=== PATIENT | male | born 1965 | race Caucasian/White ===

== ENCOUNTER 2020-09-07 19:39 | Inpatient (IN) | payer OTHER ==
[~2020-09-07] VITALS: Ht 180.3 cm; Wt 106.7 kg
[~2020-09-07 19:39] MED LIST: ALDACTONE25 MG PO; ALLOPURINOL300 MG PO; AUGMENTIN 875-1 EACH PO; COZAAR100 MG PO; FUROSEMIDE 40MG40 MG PO; GABAPENTIN 100100 MG PO; HCTZ25 MG PO; KEFLEX500 MG PO; LOPRESSOR25 MG PO; MUCINEX D ER 61 EACH PO; NORCO 5-325 TA1 EACH PO; POTASSIUM CHLO20 ME2 PO; PRILOSEC20 MG PO; PRINIVIL20 MG PO; VITAMIN B-121000 MC1 PO
[2020-09-07 20:22] LABS: BASOPHIL 0.8 % (0-2); EOSINOPHIL 2.7 % (0-5); HCT 39.7 % (42.0-52.0); HGB 13.1 g/dl (13.2-18.0); LYMPHOCYTE 22.4 % (15-48); MCH 31.4 pg (25.0-31.0); MCV 95.2 fL (78.0-100.0); MONOCYTE 8.9 % (0-12); MPV 8.9 fL (6.0-9.5); NEUTROPHIL 64.7 % (41-80); NRBC 0; PLT 536 K/uL (150-400); RBC 4.17 M/uL (4.70-6.00); RDW 15.1 % (11.5-14.0); WBC 9.8 K/uL (4.0-10.5)
[2020-09-07 20:24] LABS: LACTIC ACID 4.8 mmol/L (0.4-1.9)
[2020-09-07 20:59] LABS: INFLUENZA A NAA NEGATIVE (NEGATIVE)
[2020-09-07 22:15] LABS: PRO-BNP 60 pg/mL (<125)
[2020-09-07 22:16] LABS: ALBUMIN 3.4 g/dL (3.4-5.0); ALKALINE PHOSHATASE 113 U/L (46-116); ALT 47 U/L (16-63); AST 67 U/L (15-37); BILIRUBIN - TOTAL 0.4 mg/dL (0.2-1.0); BUN 15 mg/dL (7-18); C-REACTIVE PROTEIN < 0.20 mg/dL (<=0.90); CHLORIDE 103 mmol/L (98-107); CO2 (BICARBONATE) 26 mmol/L (21-32); CREATININE 0.85 mg/dL (0.67-1.17); GLOBULIN (CALCULATION) 4.4 g/dL; GLUCOSE 142 mg/dL (74-106); LIPASE 152 U/L (73-393); POTASSIUM 3.4 mmol/L (3.5-5.1); TOTAL PROTEIN 7.8 g/dL (6.4-8.2)
[2020-09-07 22:19] LABS: CORONAVIRUS 2019 SARS-COV-2 POSITIVE (NEGATIVE)
[2020-09-08 00:28] LABS: BILIRUBIN NEGATIVE (NEGATIVE); BLOOD NEGATIVE Ery/uL (NEGATIVE); CLARITY CLEAR (CLEAR); COLOR YELLOW (YELLOW); GLUCOSE (U) NORMAL (NORMAL); LEUKOCYTES NEGATIVE Leu/uL (NEGATIVE); NITRITE NEGATIVE (NEGATIVE); PROTEIN 1+ mg/dL (NEGATIVE); UROBILINOGEN 0.2 mg/dL (0.2-1.0)
[2020-09-08 00:41] LABS: RENAL EPITHELIAL CELLS RARE
[2020-09-08 01:37] LABS: MAGNESIUM 2.2 mg/dL (1.8-2.4); PHOSPHORUS 3.2 mg/dL (2.6-4.7)
[2020-09-08 07:48] LABS: BASOPHIL 0.5 % (0-2); EOSINOPHIL 0 % (0-5); HCT 38.4 % (42.0-52.0); HGB 12.6 g/dl (13.2-18.0); LYMPHOCYTE 10.5 % (15-48); MCH 32.1 pg (25.0-31.0); MCHC 32.8 g/dL (32.0-36.0); MCV 97.7 fL (78.0-100.0); MONOCYTE 1.3 % (0-12); MPV 8.9 fL (6.0-9.5); NEUTROPHIL 87.2 % (41-80); NRBC 0; PLT 464 K/uL (150-400); RBC 3.93 M/uL (4.70-6.00)
[2020-09-08 07:59] LABS: WBC 3.9 K/uL (4.0-10.5)
--- NOTE | 2020-09-08 08:00 | NUR ---
UPON PT ASSESSMENT THIS AM, RN NOTICED PT DEMONSTRATING SEVERE SHAKING WITH BUE WHEN TAKING MEDICATIONS. PT ETOH LEVEL WAS 362 UPON ADMISSION. PT DENIED THIS HIS BASELINE AND STATED IT WAS "PROBABLY BECAUSE OF ALCOHOL." PT HAS PHENOBARB 2ML PRN ON HIS EMAR. MD MARTIN WAS NOTIFIED OF TREMORS AND ALSO ORDERED LIBRIUM AT 0800.
[2020-09-08 08:39] LABS: BILIRUBIN - TOTAL 0.4 mg/dL (0.2-1.0); CREATININE 0.75 mg/dL (0.67-1.17); GLOBULIN (CALCULATION) 4.3 g/dL; POTASSIUM 3.7 mmol/L (3.5-5.1); TOTAL PROTEIN 7.3 g/dL (6.4-8.2)
[2020-09-09 06:33] LABS: BASOPHIL 0.1 % (0-2); EOSINOPHIL 0.1 % (0-5); HCT 35.1 % (42.0-52.0); HGB 11.7 g/dl (13.2-18.0); LYMPHOCYTE 3.8 % (15-48); MCH 32.1 pg (25.0-31.0); MCHC 33.3 g/dL (32.0-36.0); MCV 96.4 fL (78.0-100.0); MONOCYTE 6.2 % (0-12); MPV 9.2 fL (6.0-9.5); NEUTROPHIL 89.3 % (41-80); NRBC 0.2; PLT 429 K/uL (150-400); RBC 3.64 M/uL (4.70-6.00); RDW 14.8 % (11.5-14.0)
[2020-09-09 07:20] LABS: ALBUMIN 2.8 g/dL (3.4-5.0); BILIRUBIN - TOTAL 0.5 mg/dL (0.2-1.0); CREATININE 0.75 mg/dL (0.67-1.17); GLOBULIN (CALCULATION) 3.1 g/dL; POTASSIUM 3.1 mmol/L (3.5-5.1); TOTAL PROTEIN 5.9 g/dL (6.4-8.2)
[2020-09-10 06:25] LABS: BASOPHIL 0.1 % (0-2); EOSINOPHIL 0 % (0-5); HCT 34.8 % (42.0-52.0); HGB 11.6 g/dl (13.2-18.0); LYMPHOCYTE 8.2 % (15-48); MCHC 33.3 g/dL (32.0-36.0); MCV 96.1 fL (78.0-100.0); MPV 9.5 fL (6.0-9.5); NEUTROPHIL 84.4 % (41-80); NRBC 0; PLT 405 K/uL (150-400); RBC 3.62 M/uL (4.70-6.00); RDW 14.9 % (11.5-14.0)
[2020-09-10 06:56] LABS: ALBUMIN 2.7 g/dL (3.4-5.0); BILIRUBIN - TOTAL 0.4 mg/dL (0.2-1.0); CREATININE 0.71 mg/dL (0.67-1.17); GLOBULIN (CALCULATION) 3.6 g/dL; POTASSIUM 2.8 mmol/L (3.5-5.1); TOTAL PROTEIN 6.3 g/dL (6.4-8.2)
[2020-09-10 06:57] LABS: MAGNESIUM 1.7 mg/dL (1.8-2.4)
--- NOTE | 2020-09-10 14:37 | NUR ---
PT. IS HAVE WITHDRAWAL. CANNOT INTERVIEW AT THIS TIME. PT. IS ALSO COVID POS. [facility]
[2020-09-11 04:14] LABS: BASOPHIL 0.1 % (0-2); EOSINOPHIL 0.2 % (0-5); HGB 11.9 g/dl (13.2-18.0); LYMPHOCYTE 10.7 % (15-48); MCH 32.5 pg (25.0-31.0); MCV 95.6 fL (78.0-100.0); MPV 9.1 fL (6.0-9.5); NEUTROPHIL 80.6 % (41-80); NRBC 0; PLT 314 K/uL (150-400); RBC 3.66 M/uL (4.70-6.00); RDW 14.8 % (11.5-14.0); WBC 11.7 K/uL (4.0-10.5)
[2020-09-11 04:39] LABS: BUN/CREAT RATIO (CALC) 22.2 RATIO; CREATININE 0.99 mg/dL (0.67-1.17); MAGNESIUM 1.9 mg/dL (1.8-2.4); PHOSPHORUS 3.9 mg/dL (2.6-4.7); POTASSIUM 3.4 mmol/L (3.5-5.1)
[2020-09-12 04:37] LABS: BASOPHIL 0.3 % (0-2); EOSINOPHIL 1.2 % (0-5); HCT 38.3 % (42.0-52.0); HGB 12.8 g/dl (13.2-18.0); MCH 32.5 pg (25.0-31.0); MCHC 33.4 g/dL (32.0-36.0); MCV 97.2 fL (78.0-100.0); MONOCYTE 6.6 % (0-12); MPV 9.2 fL (6.0-9.5); NEUTROPHIL 75.6 % (41-80); NRBC 0; PLT 344 K/uL (150-400); RBC 3.94 M/uL (4.70-6.00); RDW 14.9 % (11.5-14.0)
[2020-09-12 05:08] LABS: BUN/CREAT RATIO (CALC) 20.8 RATIO; CREATININE 1.06 mg/dL (0.67-1.17); POTASSIUM 3.4 mmol/L (3.5-5.1)
[2020-09-12] MEDS ORDERED: PROVENTIL HFA6.7 GM INH ×2 (09:35→11:18)
[2020-09-12] MEDS ORDERED: ATROVENT HFA12.9 GM INH ×2 (09:35→11:18)
[2020-09-12] MEDS ORDERED: MAG-OXIDE 400M400 MG PO ×2 (09:36→11:18)
[2020-09-12] MEDS ORDERED: DULERA 200 MCG8.8 GM INH ×2 (09:36→11:18)
[2020-09-12] MEDS ORDERED: AUGMENTIN 875-1 EACH PO ×2 (09:56→11:18)
== END 2020-09-12 11:45 | disposition home or self-care (01) | DRG 871 ==
LOC: FER 19:39 → FTCU 23:53
PROVIDERS: Emergency Medicine Emergency Medical Services; Nurse Practitioner; ADMIT Internal Medicine
PROC: XW033E5 Introduction of Remdesivir Anti-infective into Peripheral Vein, Percutaneous Approach, New Technology Group 5 (ICD-10-PCS; principal; 2020-09-08)
PROC: 8E0ZXY6 Isolation (ICD-10-PCS; 2020-09-08)
DX: A41.89 Other specified sepsis (principal); U07.1 COVID-19; J96.01 Acute respiratory failure with hypoxia; J96.02 Acute respiratory failure with hypercapnia; J12.82 Pneumonia due to coronavirus disease 2019; F10.139 Alcohol abuse with withdrawal, unspecified; E83.42 Hypomagnesemia; I11.0 Hypertensive heart disease with heart failure; I50.9 Heart failure, unspecified; M10.9 Gout, unspecified; K21.9 Gastro-esophageal reflux disease without esophagitis; G47.30 Sleep apnea, unspecified; R07.89 Other chest pain; Z59.0 Homelessness; Z98.890 Other specified postprocedural states; Z87.01 Personal history of pneumonia (recurrent); Z87.891 Personal history of nicotine dependence
CPT/HCPCS: 36415; 36600; 71045; 71275; 80048; 80053; 81001; 82140; 82803; 83605; 83690; 83735; 83880; 84100; 84145; 84484; 85025; 85379; 86140; 87040; 87088; 93005; 94010; 94640; 94664; 94667; 94668; 94762; C9399; G0480; J2270; J2405; J2543; J2560; J2930; J3360; J3411; J3475; J7030; J7050; J8540; Q9967; U0002

== ENCOUNTER 2020-09-12 23:16 | Day surgery (SDCO) | payer OTHER ==
[~2020-09-12] VITALS: Ht 180.3 cm; Wt 156.0 kg
[~2020-09-12 23:16] MED LIST changes: +ATROVENT HFA12.9 GM INH; +DULERA 200 MCG8.8 GM INH; +MAG-OXIDE 400M400 MG PO; +PROVENTIL HFA6.7 GM INH
[2020-09-13 00:09] LABS: BASOPHIL 0.3 % (0-2); HGB 12.5 g/dl (13.2-18.0); LYMPHOCYTE 10.4 % (15-48); MCH 32.1 pg (25.0-31.0); MCHC 33.8 g/dL (32.0-36.0); MCV 95.1 fL (78.0-100.0); MONOCYTE 5.8 % (0-12); MPV 9.7 fL (6.0-9.5); NEUTROPHIL 81.2 % (41-80); NRBC 0; PLT 361 K/uL (150-400); RBC 3.89 M/uL (4.70-6.00)
[2020-09-13 00:26] LABS: ALBUMIN 2.9 g/dL (3.4-5.0); BILIRUBIN - TOTAL 0.4 mg/dL (0.2-1.0); BUN/CREAT RATIO (CALC) 15.2 RATIO; CREATININE 1.78 mg/dL (0.67-1.17); GLOBULIN (CALCULATION) 3.9 g/dL; POTASSIUM 3.3 mmol/L (3.5-5.1); TOTAL PROTEIN 6.8 g/dL (6.4-8.2)
[2020-09-13 00:29] LABS: PRO-BNP 79 pg/mL (<125)
[2020-09-13 05:55] LABS: BILIRUBIN NEGATIVE (NEGATIVE); BLOOD NEGATIVE Ery/uL (NEGATIVE); CLARITY CLEAR (CLEAR); COLOR YELLOW (YELLOW); GLUCOSE (U) NORMAL (NORMAL); LEUKOCYTES NEGATIVE Leu/uL (NEGATIVE); NITRITE NEGATIVE (NEGATIVE); PROTEIN NEGATIVE (NEGATIVE); UROBILINOGEN 0.2 mg/dL (0.2-1.0)
[2020-09-13 06:01] LABS: AMPHETAMINES NEGATIVE (NEGATIVE); BARBITURATES POSITIVE (NEGATIVE); ECSTASY (MDMA) NEGATIVE (NEGATIVE); MARIJUANA (THC) NEGATIVE (NEGATIVE); METHADONE NEGATIVE (NEGATIVE); OPIATES POSITIVE (NEGATIVE); OXYCODONE NEGATIVE (NEGATIVE)
[2020-09-13 09:53] LABS: BASOPHIL 0.4 % (0-2); EOSINOPHIL 1.2 % (0-5); HCT 37.5 % (42.0-52.0); HGB 12.5 g/dl (13.2-18.0); LYMPHOCYTE 13.9 % (15-48); MCH 32.7 pg (25.0-31.0); MCHC 33.3 g/dL (32.0-36.0); MCV 98.2 fL (78.0-100.0); MONOCYTE 8.5 % (0-12); MPV 9.7 fL (6.0-9.5); NEUTROPHIL 74.4 % (41-80); NRBC 0; PLT 280 K/uL (150-400); RBC 3.82 M/uL (4.70-6.00); RDW 15.3 % (11.5-14.0); WBC 16.1 K/uL (4.0-10.5)
[2020-09-13 10:19] LABS: BUN 28 mg/dL (7-18); BUN/CREAT RATIO (CALC) 24.1 RATIO; CHLORIDE 101 mmol/L (98-107); CO2 (BICARBONATE) 28 mmol/L (21-32); CREATININE 1.16 mg/dL (0.67-1.17); GLUCOSE 92 mg/dL (74-106); MAGNESIUM 2.1 mg/dL (1.8-2.4); POTASSIUM 3.1 mmol/L (3.5-5.1)
[2020-09-14 06:31] LABS: BASOPHIL 0.4 % (0-2); EOSINOPHIL 2.4 % (0-5); HCT 35.4 % (42.0-52.0); HGB 11.7 g/dl (13.2-18.0); LYMPHOCYTE 13.7 % (15-48); MCH 32.3 pg (25.0-31.0); MCHC 33.1 g/dL (32.0-36.0); MCV 97.8 fL (78.0-100.0); MONOCYTE 9.4 % (0-12); MPV 9.6 fL (6.0-9.5); NEUTROPHIL 72.6 % (41-80); NRBC 0; PLT 251 K/uL (150-400); RBC 3.62 M/uL (4.70-6.00); RDW 15.1 % (11.5-14.0); WBC 12.7 K/uL (4.0-10.5)
[2020-09-14 07:01] LABS: BUN/CREAT RATIO (CALC) 23.9 RATIO; CREATININE 0.92 mg/dL (0.67-1.17); POTASSIUM 3.6 mmol/L (3.5-5.1)
--- NOTE | 2020-09-14 12:54 | NUR ---
1200 SET UP THE IPAD FOR A ZOOM MEETING WITH THE PATIENT AND [facility].
--- NOTE | 2020-09-14 16:04 | NUR ---
1430 WAS NOTIFIED THAT [facility] HAS ACCEPTED HIM FOR INPATIENT. 1435 WAS NOTIFED OF THE BED AT OUR AND BED NUMBER. 1525 REPORT WAS CALLED TO JR SANTOS AT [facility]. AWAITING FOR EMS FOR TRANSPORT.
== END 2020-09-14 17:20 ==
LOC: FER 23:16 → FMS 09-13 05:24
PROVIDERS: Allergy & Immunology; Emergency Medicine Emergency Medical Services; Internal Medicine; ADMIT Internal Medicine
DX: U07.1 COVID-19 (principal); J12.82 Pneumonia due to coronavirus disease 2019; D72.829 Elevated white blood cell count, unspecified; N17.9 Acute kidney failure, unspecified; F10.129 Alcohol abuse with intoxication, unspecified; E66.01 Morbid (severe) obesity due to excess calories; I11.0 Hypertensive heart disease with heart failure; I50.9 Heart failure, unspecified; F32.9 Major depressive disorder, single episode, unspecified; M10.9 Gout, unspecified; K21.9 Gastro-esophageal reflux disease without esophagitis; G47.30 Sleep apnea, unspecified; Z87.891 Personal history of nicotine dependence; R94.31 Abnormal electrocardiogram [ECG] [EKG]
CPT/HCPCS: 36415; 36600; 71045; 71250; 80048; 80053; 80305; 81003; 82803; 83605; 83735; 83880; 84145; 84484; 85025; 85379; 87040; 93005; 94640; 94664; 94760; G0378; G0480; J0692; J1650; J3480; J7040; U0002

== ENCOUNTER 2020-09-29 10:36 | Emergency (ER) | payer OTHER | END 2020-09-29 15:19 | disposition home or self-care (01) | LOC: FER 10:36 | DX: S80.02XA Contusion of left knee, initial encounter (principal); S80.01XA Contusion of right knee, initial encounter; I10 Essential (primary) hypertension; J44.9 Chronic obstructive pulmonary disease, unspecified; I51.9 Heart disease, unspecified; W19.XXXA Unspecified fall, initial encounter; Y92.009 Unspecified place in unspecified non-institutional (private) residence as the place of occurrence of the external cause | CPT/HCPCS: 73564 ==

== ENCOUNTER 2020-10-29 12:04 | Emergency (ER) | payer OTHER ==
[2020-10-29 12:31] LABS: EOSINOPHIL 3.8 % (0-5); HCT 38.7 % (42.0-52.0); HGB 12.7 g/dl (13.2-18.0); LYMPHOCYTE 22.7 % (15-48); MCHC 32.8 g/dL (32.0-36.0); MCV 97.5 fL (78.0-100.0); MONOCYTE 7.1 % (0-12); MPV 9.2 fL (6.0-9.5); NRBC 0; PLT 297 K/uL (150-400); RBC 3.97 M/uL (4.70-6.00); RDW 13.5 % (11.5-14.0); WBC 5.1 K/uL (4.0-10.5)
[2020-10-29 13:08] LABS: INR 1.12 (0.9-1.2); PROTHROMBIN TIME 13.8 SECONDS (11.8-13.4); PTT 32.6 SECONDS (24.4-34.7)
[2020-10-29 13:28] LABS: ALBUMIN 3.3 g/dL (3.4-5.0); BILIRUBIN - TOTAL 0.5 mg/dL (0.2-1.0); BUN/CREAT RATIO (CALC) 15.7 RATIO; CREATININE 0.7 mg/dL (0.67-1.17); GLOBULIN (CALCULATION) 3.4 g/dL; TOTAL PROTEIN 6.7 g/dL (6.4-8.2)
== END 2020-10-29 20:30 | disposition other institution (70) ==
LOC: FER 12:04
PROVIDERS: Emergency Medicine
DX: U07.1 COVID-19 (principal); R45.851 Suicidal ideations; E87.6 Hypokalemia; I11.0 Hypertensive heart disease with heart failure; I50.9 Heart failure, unspecified; I25.10 Atherosclerotic heart disease of native coronary artery without angina pectoris; I10 Essential (primary) hypertension; J44.9 Chronic obstructive pulmonary disease, unspecified; E66.9 Obesity, unspecified; Z87.09 Personal history of other diseases of the respiratory system
CPT/HCPCS: 36415; 71045; 80053; 83880; 84484; 85025; 85610; 85730; 93005; G0480; U0002